=== PATIENT | male | born 1940 | race Caucasian/White ===

== ENCOUNTER → 2018-03-23 07:51 | Day surgery (SDC) | payer MEDICARE ==
[~2018-03-23 07:51] MED LIST: Buffered Lidocaine 1% SYRIN* 1 ML/SYRINGE INTRADERM ONE; Bupivacaine 0.25% SDV PF* 10 ML VIAL INJ ONE; Dexamethasone IV* 4 MG/ML 1 ML (4 MG) IV SLOW PU ONE; Dexamethasone IV* 4 MG/ML 1 ML (4 MG) ONE; EPHEDrine (Pressors)* 50 MG/ML VIAL ONE; Famotidine IV* 10 MG/ML 2 ML (20 mg) IV ONE; Famotidine IV* 10 MG/ML 2 ML (20 mg) ONE; Lactated Ringers 1000 ML Bag* 1,000 ML IV SCH; Lidocaine 2% PF * 5 ML VIAL ONE; Ondansetron INJ* 2 MG/ML VIAL ONE; Propofol* 10 MG/ML 20 ML BTL ONE; ceFAZolin 2 GM PREMIX in ORs 2 GM/50 ML BAG IVPB ONE; fentaNYL* 50 MCG/ML 2 ML VIAL (100 MCG VIAL) ONE
[2018-03-23 15:36] VITALS: BP 131/83
--- NOTE | 2018-03-24 08:34 | OP ---
DATE OF OPERATION: 03/23/18 - [facility] DATE OF : 36 SURGEON: Justice Bledsoe MD [employer] DISPATCHER: PIA Harp. An assistant teaching professor was needed for the procedure to aid in positioning of the arm and retraction. ANESTHESIOLOGIST: Dr. Leal. ANESTHESIA: General. PRE-OP DIAGNOSES: 1. Right severe recurrent carpal tunnel syndrome. 2. Right severe ulnar nerve peripheral dysfunction with severe ulnar nerve instability at the elbow and some likely compression at the wrist. POST-OP DIAGNOSES: 1. Right severe recurrent carpal tunnel syndrome. 2. Right severe ulnar nerve peripheral dysfunction with severe ulnar nerve instability at the elbow and some likely compression at the wrist. OPERATIVE PROCEDURE: 1. Right revision carpal tunnel release with AxoGuard nerve wrapping. Please note that this was substantially more difficult than a normal carpal tunnel release requiring much more time and dissection and ultimately nerve wrapping. 3. Right ulnar nerve cubital tunnel release at the elbow with anterior transposition. 4. Right ulnar nerve decompression at the wrist. INDICATIONS: Jonh had a carpal tunnel release performed 2 years ago after which he said he felt better, but about 3 to 5 months ago he began to develop severe recurrent symptoms; the index finger through the small finger had gone to become constantly numb. He was having significant motor symptoms as well both in the thenars as well as in the ulnar distribution. The ulnar nerve is frankly unstable at the elbow. Tinel's was very positive over the median nerve at the wrist. We talked about the risks and benefits. He understands that the results of the surgery are more unpredictable, increased risk of nerve injury with the surgery given that it is revision surgery. He would like to proceed. ESTIMATED BLOOD LOSS: 2 mL. FINDINGS: There was a severe band of tissue compressing the median nerve just proximal to the wrist flexion crease. The nerve was also quite compressed through the carpal tunnel. The segment of nerve between the two areas of compression was quite bulbous and firm. DESCRIPTION OF PROCEDURE: Jonh was seen in the preoperative holding area. The correct site, side, and procedure were identified. We came back to the operating room where the arm was prepped and draped in the usual fashion and a time-out was performed. The arm was exsanguinated with the Esmarch and the tourniquet was inflated to 250 mmHg. I first re-opened his prior carpal tunnel incision and this was brought across the ulnar side of the wrist in Kumar-type fashion. Dissection was carried down and full-thickness flaps were raised off the fascia. I opened the fascia proximally and traced this distally through the carpal tunnel. The median nerve was noted through the carpal tunnel to be very compressed and flattened and red. However, the most notable finding was about a centimeter proximal to that area of compression, there was a tight band of tissue that when released left an area of band-like compression over the nerve. The intervening segment between the 2 areas of compression was very firm and a bit bulbous. At this point, I placed a vessel around the median nerve. I performed a full neurolysis taking care to preserve the motor branch. Once I had done this, I brought in a 10 x 40 mm AxoGuard nerve wrap and this was placed around the nerve. This was sewed together with 6-0 Prolene suture proximally, distally and in the middle, taking care not to sew the wrap to the nerve. Again, this was substantially more difficult than typical carpal tunnel release and took substantially more time. I then came ulnar to the hook of the hamate and opened up Guyon's canal. The release was completed proximally and I came distally. There was a couple of traversing vessels over the ulnar nerve and these were cauterized with the bipolar cautery. I first released the sensory branch; this was stuck in a tight band of scar tissue, this was fully released. I then came and retracted the ulnar nerve sensory branches out of the way and then released the hypothenar fascia, the muscle, and then the subfascial layer to completely decompress the motor branch. After this was done, the ulnar nerve at the wrist was looking very good. I did perform a little hypothenar fat pad transfer to cover the median nerve. I then closed the skin with 4-0 nylon suture. I then made a curvilinear incision over the posterior medial elbow. Dissection was carried down. Full-thickness flaps were raised off of the Duncan's ligament and the flexor pronator fascia. The medial antebrachial cutaneous nerve was identified and protected throughout the case. I started the release just proximal to the medial epicondyle. The nerve was sitting perched the medial epicondyle. The release was carried up proximally past the arcade of Ozzy. I then came distally and released the Duncan's ligament and then superficial fascia, the two edges of the FCU and the subfascial layer. The vessel loop was placed around the ulnar nerve and a full neurolysis was performed. The medial intermuscular septum was excised. The portion of the FCU humeral head muscle was excised as was the leading edge of the FCU fascia. I then raised step-cut type fascia flaps off the flexor pronator fascia. The intermuscular septi were excised. I then transposed the nerve onto the muscular bed. The 2 ends of the fascial flaps were sewed end-to-end with 4-0 Ethibond suture to keep the nerve in the transposed position. Hemostasis had been performed with bipolar cautery and Bovie throughout the procedure. I checked again to ensure hemostasis. I checked to make sure the nerve was not compressed or kinked in any way. Everything was looking good, so the subcutaneous tissue was reapproximated with 3-0 Vicryl suture, the skin was closed with 3-0 Monocryl suture and Steri-Strips. Marcaine was infiltrated around all the operative sites. The wounds were dressed and a long arm splint incorporating the wrist as well was placed. The elbow was then brought to 80 degrees of flexion. The tourniquet was deflated and the hand pinked up immediately. He was taken to the recovery room in stable condition. [id number] #: [id number] MTDD
== END | disposition home or self-care (01) ==
LOC: OR 07:51
PROVIDERS: ATTEND Orthopaedic Surgery Hand Surgery
DX: G56.01 Carpal tunnel syndrome, right upper limb (principal); G56.21 Lesion of ulnar nerve, right upper limb; I10 Essential (primary) hypertension; I45.10 Unspecified right bundle-branch block; K21.9 Gastro-esophageal reflux disease without esophagitis; Z86.73 Personal history of transient ischemic attack (TIA), and cerebral infarction without residual deficits; Z85.038 Personal history of other malignant neoplasm of large intestine
CPT/HCPCS: C1763; J0690; J1100; J2405; J2704; J3010; J3490